=== PATIENT | female | born 1950 | race Caucasian/White ===

== ENCOUNTER → 2021-07-28 | Outpatient (CLI) ==
[~2021-07-28] MED LIST: HYDR1TAB PO; PNT40TEC PO; SCP1.5TD TOP
== END ==
LOC: LABNPT 05:14 → MERGE 05:14
PROVIDERS: ATTEND Orthopaedic Surgery
DX: Z01.812 Encounter for preprocedural laboratory examination (principal); Z20.822 Contact with and (suspected) exposure to COVID-19
CPT/HCPCS: 87636